=== PATIENT | female | born 1995 | race Caucasian/White ===

== ENCOUNTER 2022-02-05 09:45 | Inpatient (IN) | payer OTHER ==
[~2022-02-05] VITALS: Ht 165.1 cm; Wt 119.5 kg
[2022-02-05] VITALS (42 sets, daily range): BP systolic 106–166; BP diastolic 55–103; PULSE 50–142; TEMP 98.3–100.7
--- NOTE | 2022-02-05 09:45 | NUR ---
PT AMBULATORY TO UNIT WITH SPOUSE AND MOTHER. PT REPORTS BACK CONTRACTIONS Q2-3 MINUTES, NO LEAKING OF FLUID OTHER THAN BLOODY SHOW, AND POSITIVE MOVEMENT. PT COMFORTABLE IN BED. EFM TRACING CAT 1 AND TOCO TRACING AT THIS TIME. WILL CONTINUE TO MONITOR.
--- NOTE | 2022-02-05 09:45 | NUR ---
0945 - PATIENT AMBULATORY TO LDR4 ACCOMPANIED BY PATIENT'S MOTHER AND SPOUSE. PATIENT REPORTS CONTRACTIONS SINCE EARLY THIS AM WITH BLOODY SHOW. PATIENT STATES SHE CALLED [facility] OFFICE AND WAS INSTRUCTED TO GO TO LABOR & DELIVERY. PATIENT DENIES LEAKING OF FLUID AND REPORTS GOOD MOVEMENT. 0955 - PATIENT ON MONITOR. VSS. HR BASELINE IN 150S. 1000 - SVE PERFORMED. 3-/-1. MD TARI ON UNIT FOR ROUNDS. NOTIFIED OF PATIENT STATUS AND SVE. VERBAL ORDERS FOR ADMIT. 1020 - IV PLACED IN LEFT HAND. LABS DRAWN ORDERED. 1030 - MD TARI AT BEDSIDE. SVE PERFORMED BY MD TARI. /-1. AROM PERFORMED BY AT 1033. CLEAR FLUID NOTED. PERICARE PERFORMED. PATIENT REPOSITIONED. CARE ONGOING.
[2022-02-05] MEDS ORDERED: PRENATAL TABLET PO (10:06)
[2022-02-05 10:41] LABS: BASO % 0.2 % (0.0-2.0); EOS # 0.1 K/mm3 (0.0-0.7); EOS % 0.5 % (0.0-4.0); GRAN # 7.5 K/mm3 (1.4-6.5); GRAN % 80.2 % (42.2-75.2); HEMOGLOBIN 11.9 g/dl (12.5-16.0); LYMPH # 1.4 K/mm3 (1.2-3.4); LYMPH % 14.6 % (20.0-51.0); MEAN CELL VOLUME 88 fl (80.0-100.0); MEAN CORPUSCULAR HEMOGLOBIN 30 pg (27-31); MEAN CORPUSCULAR HGB CONC 34 g/dl (33.0-37.0); MEAN PLATELET VOLUME 10.3 fl (7.4-10.4); MONO # 0.4 K/mm3 (0.1-0.6); MONO % 4.2 % (1.7-9.3); PLATELET COUNT 236 K/mm3 (130-400); RED BLOOD COUNT 3.97 M/mm3 (4.10-5.30); REDCELL DISTRIBUTION WIDTH-CV 13.1 % (11.5-14.5)
--- NOTE | 2022-02-05 12:30 | NUR ---
1157 - PATIENT PLACED ON TELE MONITOR UNIT. TOCO NOT TRACING ON TELE UNIT. PATIENT STANDING AND SWAYING. RN TROUBLE SHOOTING TELE MONITOR. 1218 - PATIENT POSITIONED ON BIRTHING BALL. TELE MONITOR TROUBLE SHOOTING CONTINUES. 1220 - TOCO NOW TRACING ON MONITOR. CARE ONGOING.
--- NOTE | 2022-02-05 12:50 | NUR ---
Jay MARC MD AT BEDSIDE. PLAN OF CARE DISCUSSED. PATIENT AGREEABLE TO PLAN. CARE ONGOING.
--- NOTE | 2022-02-05 14:32 | NUR ---
1432 - PATIENT REQUESTING AN EPIDURAL. JJ WALDEN NOTIFIED FOR ANESTHESIA. CARE ONGOING.
--- NOTE | 2022-02-05 14:55 | NUR ---
1455 - PATIENT STANDING/SWAYING IN ROOM. JJ WALDEN AT BEDSIDE. 1456 - PATIENT POSITIONED SITTING EDGE OF BED. 1501 - SINGLE SHOT BY VELVET STEAMER NOTED. PATIENT REPOSITIONED. CARE ONGOING.
--- NOTE | 2022-02-05 23:15 | NUR ---
EPIDURAL CATHETER REMOVED, BLUE TIP INTACT. UP TO BATHROOM, GAIT IS STEADY. VOIDS 200ML. PERICARE PROVIDED. CLEAN GOWN ON. AMBULATED TO POST ROOM 207 WITHOUT DIFFICULTY.
[2022-02-06 03:05] VITALS: BP 114/65; PULSE 85; TEMP 97.8
[2022-02-06 08:00] VITALS: BP 126/83; PULSE 99; TEMP 98.2
--- NOTE | 2022-02-06 09:46 | NUR ---
Initial visit; Parents thanked Keying Machine Operator for offering congratulations and God's blessings for the of their daughter and Keying Machine Operator offered special Blessings and a certificate of Blessings from Keying Machine Operator.
--- NOTE | 2022-02-06 14:01 | NUR ---
1400 REPORT GIVEN TO MISAEL PARDO TO ASSUME CARE
[2022-02-06 19:23] VITALS: BP 125/66; PULSE 91; TEMP 99
--- NOTE | 2022-02-06 21:52 | NUR ---
EDUCATIONAL VIDEO TEACHING PROVIDED TO PARENTS. TV WHEELED TO ROOM AND THIS NURSE SET UP VIDEOS FOR PARENTS TO WATCH.
[2022-02-07] MEDS ORDERED: IBU600 MG PO (09:27)
[2022-02-07 10:30] VITALS: BP 135/73; PULSE 96; TEMP 98
== END 2022-02-07 11:10 | disposition home or self-care (01) | DRG 807 ==
LOC: LDRO 09:45 → LDR 10:49 → OB 10:49
PROVIDERS: ADMIT Obstetrics & Gynecology
PROC: 10E0XZZ Delivery of Products of Conception, External Approach (ICD-10-PCS; principal; 2022-02-05)
PROC: 0HQ9XZZ Repair Perineum Skin, External Approach (ICD-10-PCS; 2022-02-05)
DX: O70.0 First degree perineal laceration during delivery (principal); Z37.0 Single live birth; O69.81X0 Labor and delivery complicated by cord around neck, without compression, not applicable or unspecified; Z3A.40 40 weeks gestation of pregnancy; Z86.16 Personal history of COVID-19
CPT/HCPCS: J2590; J7120